=== PATIENT | male | born 1995 | race Asian ===

== ENCOUNTER 2016-05-30 14:52 | Emergency (ER) | payer SELFPAY ==
[~2016-05-30] VITALS: Ht 182.9 cm; Wt 72.6 kg
[2016-05-30 15:05] VITALS: BP 114/68
== END 2016-05-30 15:38 | disposition home or self-care (01) ==
LOC: ER 14:55
DX: J20.9 Acute bronchitis, unspecified (principal); F17.200 Nicotine dependence, unspecified, uncomplicated
CPT/HCPCS: 99283; A4606; Z7610